=== PATIENT | male | born 1950 | race Caucasian/White ===

== ENCOUNTER 2017-08-10 05:58 | Inpatient (IN) | payer BC ==
[2017-08-10] MEDS ORDERED: ACETAMINOPHEN 1,000 MG/100 ML BTL IV ONE (06:00)
[2017-08-10] MEDS ORDERED: VANCOMYCIN HCL 1,000 MG in DEXTROSE 5 % IN WATER 250 ML IVPB ONE ×2 (06:00)
[2017-08-10] MEDS ORDERED: MECLIZINE 25 MG TABLET PO ONE (06:00)
[2017-08-10] MEDS ORDERED: METOCLOPRAMIDE 10 MG TABLET PO ONE (06:00)
[2017-08-10] MEDS ORDERED: FAMOTIDINE 20MG TABLET PO ONE (06:00)
[2017-08-10] MEDS ORDERED: CELECOXIB 100 MG CAPSULE PO ONE (06:00)
[2017-08-10 06:58] LABS: ABO GROUP B; ANTIBODY SCREEN NEGATIVE (NEGATIVE); RH TYPE POSITIVE
[2017-08-10] MEDS ORDERED: HYDROMORPHONE HCL 2 MG/ML VIAL IM PRN (07:59)
[2017-08-10] MEDS ORDERED: MORPHINE SULFATE 5 MG/ML PFS IVP PRN ×4 (07:59)
[2017-08-10] MEDS ORDERED: BISACODYL 10 MG SUPP RC PRN (07:59)
[2017-08-10] MEDS ORDERED: ACETAMINOPHEN W/ CODEINE 300MG/60MG TABLET PO PRN ×2 (07:59)
[2017-08-10] MEDS ORDERED: ACETAMINOPHEN 325 MG TAB PO PRN (07:59)
[2017-08-10] MEDS ORDERED: PROMETHAZINE HCL 12.5 MG in 0.9 % SODIUM CHLORIDE 100ML 50 ML IVPB PRN (07:59)
[2017-08-10] MEDS ORDERED: DIPHENHYDRAMINE HCL 25 MG CAPSULE PO PRN (07:59)
[2017-08-10] MEDS ORDERED: HYDROMORPHONE HCL 1 MG/ML SYRINGE IM PRN (07:59)
[2017-08-10] MEDS ORDERED: KETOROLAC 30 MG/ML VIAL IVP PRN ×2 (07:59)
[2017-08-10] MEDS ORDERED: ACETAMINOPHEN W/ CODEINE 300MG/30MG TABLET PO PRN ×2 (07:59)
[2017-08-10] MEDS ORDERED: ONDANSETRON HCL IV 4 MG/2 ML VIAL IVP PRN (07:59)
[2017-08-10] MEDS ORDERED: AL HYDROX/MAG HYDROX 30ML UD PO PRN (07:59)
[2017-08-10] MEDS ORDERED: ZOLPIDEM TARTRATE 5 MG TABLET PO PRN (07:59)
[2017-08-10] MEDS ORDERED: HYDROCODONE/APAP 7.5/325MG TABLET PO PRN ×2 (07:59)
[2017-08-10] MEDS ORDERED: HYDROCODONE/APAP 5/325MG TABLET PO PRN ×2 (07:59)
[2017-08-10] MEDS ORDERED: NALOXONE 0.4 MG/1 ML VIAL IVP PRN (07:59)
[2017-08-10] MEDS ORDERED: METOCLOPRAMIDE HCL 10 MG/2 ML VIAL IVP PRN (07:59)
[2017-08-10] MEDS ORDERED: MAGNESIUM HYDROXIDE 30 ML UDC PO PRN (07:59)
[2017-08-10] MEDS ORDERED: TRAMADOL HCL 50 MG TABLET PO PRN ×2 (07:59)
[2017-08-10] MEDS ORDERED: DEXTROSE 5 % AND 0.9 % NACL 1,000 ML IV PRN (09:45)
[2017-08-10] MEDS ORDERED: VANCOMYCIN HCL 1 GM VIAL IVPB ONE ×2 (12:16→12:17)
[2017-08-10] MEDS ORDERED: TRANEXAMIC ACID 1,000 MG/10 ML ML IV ONE ×2 (12:16→12:17)
[2017-08-10] MEDS ORDERED: BUPIVACAINE 0.5% W/EPI MPF 30 ML VIAL IVP ONE (12:17)
[2017-08-10] MEDS ORDERED: BUPIVACAINE LIPOSOME 266MG/20ML VIAL IV ONE (12:17)
[2017-08-10] MEDS: FERROUS SULFATE 325 MG TAB PO SCH ×2 (13:36→22:13)
[2017-08-10] MEDS: DOCUSATE SODIUM 100 MG CAPSULE PO SCH ×2 (13:36→22:13)
--- NOTE | 2017-08-10 13:39 | Rehab Evaluation ---
Patient Information - Patient Information Diagnosis: L Knee OA Ordered Treatment: PT Evaluate and Treat Status: Initial Evaluation Surgery: Yes (L TKA) Date of Surgery: 08/10/17 Past Medical/Surgical Hx: PAST MEDICAL/SURGICAL HISTORY Past Surgical History RTKA 8 years ago RTHA x's 2 1998 and 2011 colon resection c scopes left shoulder sx has plate dorinda filter and removal prostate sx PMH - Respiratory Hx Respiratory Disorders No PMH - Cardiovascular Hx Cardiovascular Disorders Yes Hx Deep Vein Thrombosis Yes: after hip sx 1998 was on thinners Exercise Tolerance Good Comment: pt had cardiac arrest when pic line was inserted in ICU 2 days PMH - Neuro Hx Neurological Disorders No PMH - GI Hx Gastrointestinal Disorders Yes Hx Gastroesophageal Reflux Yes: occassionally PMH - Hx Genitourinary Disorders Yes Hx Prostate Problems Yes: had sx no malignancy Comment: infection after prostate sx was on IV ABS's x's 1 month PMH - Endocrine Hx Endocrine Disorders No PMH - Musculoskeletal Hx Musculoskeletal Disorders Yes Hx Arthritis Yes: knee PMH - Psych Hx Psychiatric Problems No PMH - Hematology/Oncology Hx Hematology/Oncology Yes Disorders Hx Bruising Yes: thin skin Social History: Detail (The patient lives in a single story home with his spouse. The home has 2 steps to enter with railings on both sides. The patient' s home has a walk-in shower with a shower seat and grab bars in the shower. The toilet does not have grab bars present. He states that he will be using a standard walker in the early stages of recovery, and does not plan to use an AD for ambulation.) Precautions: [place] - Time With Patient Total Time Spent With Patient (Min): 30 Treatment Procedures: Detail (PT Initial Evaluation) Subjective Information - Subjective Information Per Patient (Said that he was not having any pain at this time. Said that he had some feelings of nausea.) Objective Data - Pain Pain Present: No Pain Intensity: 0 Pain Scale Used: Numeric (1 - 10) - Mental Status Patient Orientation: Oriented x3 - Visual Perception Appears within normal limits for therapeutic activities - ROM Within normal limits (R Knee - WNL L Knee - Decreased as expected s/p L TKA) - Strength/Tone Within normal limits (R LE - not formally tested but was within functional limits for ambulation and transfers L LE - Decreased as expected s/p L TKA) - Bed Mobility Independent (Supine to Sit to EOB - Independent Scooting in Bed - Independent) - Transfers Independent (Sit to Stand - Independent Stand to Sit - Independent) - Balance Balance Sitting: Good (Sitting at EOB - No LOB) Balance Standing: Good (Static Standing before ambulation - No LOB) - Sensation Intact - Gait Detail (The patient used a 2WW and WBAT on L and required CGA x1 for ambulation. He was able to walk from the edge of his bed to the chapel (about 88ft) and back (88 ft). Had no LOB throughout and no increase in pain.) - Special Tests No Therapy Assessment - Therapy Assessment Detail (The patient had no complaints of pain. He was independent with transfers and bed mobility. He was able to ambulate for about 180 feet with CGA x1, but stairs were not assessed at this time.) Patient Education - Patient Education Teaching Topic: Exercise/Activity (HEP was reviewed. Exercises included: Quad sets, Glut. sets, Hamstring sets, SLR, and ankle pumps. Was instructed 10 reps at least 1-2x per day.) Response: Return Demonstration, Verbalize Understanding Teaching Method: Discussion, Demonstration Teaching Recipient: Patient Barriers To Learning: None Problem List - Problem List Physical Therapy Problem List: Detail (1) Decreased strength and ROM as expected L TKA 2) Ability to ascend/descend stairs not assessed) Goals - Goals Physical Therapy Goals: 1) The patient will be able to ascend/descend three stairs with supervision so he will be able to enter his home safely. 2) The patient will be independent in HEP to regain strength and ROM in L Knee Prognosis - Prognosis Good Plan - Plan Physical Therapy Plan: The patient will be seen 1-2x/day M-F for gait training and LE strengthening.
[2017-08-10] MEDS ORDERED: FENTANYL PF 100MCG/2ML VIAL IV ONE (15:07)
[2017-08-10] MEDS ORDERED: MIDAZOLAM HCL 2MG/2ML VIAL IV ONE (15:07)
[2017-08-10] MEDS ORDERED: *PACU ONLY* KETAMINE HCL 10 MG/ML (20ML) VIAL IV ONE (15:07)
[2017-08-10] MEDS ORDERED: EPHEDRINE SULFATE 50 MG/ML ML IV ONE (15:07)
[2017-08-10] MEDS ORDERED: PROPOFOL 10 MG/ML VIAL IV ONE (15:07)
[2017-08-10] MEDS ORDERED: HYDROMORPHONE HCL 2 MG/ML VIAL IV ONE (15:07)
[2017-08-10] MEDS: VANCOMYCIN HCL 1,000 MG in DEXTROSE 5 % IN WATER 250 ML IVPB SCH ×2 (18:35)
--- NOTE | 2017-08-10 21:22 | Operative Note ---
DATE OF SURGERY: 08/10/2017 PREOPERATIVE DIAGNOSIS: Left knee arthrosis POSTOPERATIVE DIAGNOSIS: Left knee arthrosis. PROCEDURE: Left total knee arthroplasty. SURGEON: Reagan Hogue M.D. Anesthesia: Spinal. Eva Arreola CRNA. Complications: None. Blood Loss: Minimal. Tourniquet Time: Approximately 60 minutes. Operative Findings: Severe [id number] erosive patellofemoral arthrosis. Components Placed: 2 gram Vancomycin, cement, [employer] II Oxinium total knee arthroplasty system; size 6 femoral component, size 6 tibial baseplate, an 10 mm thick tibial poly insert, and a 35 mm cemented patellar component. INDICATIONS FOR OPERATION: This is a 63-year-old male who has had persistent pain and dysfunction in her knees for several years. He is status post right total knee arthroplasty done by myself a few years ago and is now scheduled for the left. I explained all the risks and benefits to him in detail for diagnosis and procedures including but not limited to, infection, nerve injury, vessel injury, persistent pain, stiffness, numbness and tingling in his ankle, need for resection of arthroplasty should the components become infected or loosened , nerve injury, vessel injury, blood clot, need for further procedures, and need for anticoagulation to prevent blood clots, and the risks associated with medications and all of his questions were answered. The rehab and healing course were outlined and he agreed to the procedure. PROCEDURE: The patient was brought to the O.R. and placed in the supine position for surgery. Spinal anesthesia induced and his left lower extremity prepped and draped in sterile fashion. Left knee was prepped again with ChloraPrep after it was draped. Intraoperative time-out was performed. The leg was exsanguinated with an Esmarch. The knee was flexed and the tourniquet inflated to 250 mmHg pressure. Next, the skin and subcutaneous tissue was dissected down. I Incised the capsule medially around the medial border of the of the patella to the tibial tubercle. I incised the vastus medialis in line with its fibers in a mid vastus approach. I partially resected the retropatellar fat pad, elevated the capsule subperiosteally and medially and flexed the knee. He had severe erosive bone-on- bone patellofemoral compartment arthritis. Next, we drilled an intercondylar drill hole and inserted the intramedullary guide winnie with 6 degree cutting block , aligned the distal femoral condyles, and then pinned it in a +2 mm position, and cut the distal femoral condyles. Next, I placed the sizing jig on the distal femoral condyle and sized it to be right on size 6. Through the previously placed pinholes, we placed the 5-in-1 cutting jig, size 6. We dialed in the anterior cut so it would come out flush without notching. We cut that cut and then pinned it in place and cut the remaining chamfer cuts in the usual fashion. We then placed a size 6 trial femoral component. It fit nicely. I had a good flush cut. Next, attention was turned to the tibia. We exposed the tibia with a Romario and bent Hohmann's. I resected the ACL previously and resected some of the meniscus. I inserted the spikes in the intertubercular groove two fingerbreadths distally to the anterior tibial cortex off the third of the tibial tubercle and we referenced for a 7 mm cut off the higher lateral plateau with a stylus. We then pinned the cutting jib provisionally in place with two anterior posterior pins. Next, I then rechecked alignment of the cutting jig with the drop winnie centered on the tibial anatomic axis and cross-pinned it to complete its fixation and then cut the tibia. Next, we removed osteophytes from the posterior femoral condyles, checked flexion and extension gaps. Basically, we sized up to a size 10 mm block. He symmetric flexion and extension gaps at 0 with 2 to 3 mm of varus valgus laxity in flexion and extension. Overall alignment of cuts in extension with alignment rods was in anatomic valgus orientation with alignment winnie centered on the hip joint and ankle joint. Next we took the knee in flexion. We sized the tibial baseplate to a size 6. We replaced all trial components. I set the rotation again of the tibial baseplate in extension using the alignment winnie centered on the hip joint and ankle joint. Marked with electrocautery hatfield off the laser hatfield on the tibial baseplate. Attention was turned to the patella. We measured the patella to be approximately 23 mm. We set the cutting jig at 14 mm to allow for a 9 mm thick poly insert. We cut the patella, chamfered off the lateral patellar facet. Sized to be a 35, medialized as much as possible and had good fit and remeasured and it was right on 14 mm thick and we drilled three peg holes for a 35 mm cemented patellar component. Next, we did a trial range of motion. The patella tracked nicely handsfree. He had full extension and flexion to 140 to 150 degrees and again symmetric flexion and extension gaps were found. Next, we mixed cement and changed gloves, brought in a clean sheet. We copiously irrigated the bony surface with pulse lavage and antibiotic solution. We then set the tibial baseplate at the previously placed electrocautery hatfield, pinned it in place, and reamed out and keel punched the keel hole. Next, we placed a bone plug in the femoral canal hole. We placed the drill bit in the tibial keel hole and then pre-coated both surfaces and impacted down the tibial component and then the femoral component and placed the trial tibial poly liner and clamped down the patella component held the knee in extension until the cement hardened. Once the cement hardened, we took the knee in flexion. We distracted the knee with a bone hook and sponge. We removed excess cement around the edges of the components and recessed it. We irrigated the knee copiously and then we injected several areas with poke sticks of 0.5% Marcaine with Epinephrine, 2 grams tranexamic acid and an Exparel mixture deep in the posterior capsule, medial and lateral periosteum, and superficially in the subcutaneous tissue, vastus medialis. Next, we then inserted the real tibial poly insert and verified it was interlocked medially and laterally. Final range of motion revealed the same. Next, we irrigated copiously, placed the knee in flexion, and closed the capsule and vastus with running #2 Quill. We irrigated again and closed the skin deep with 2-0 Vicryl and Zipline. Sterile dressing applied. MISBAH wrap. He tolerated the procedure well. No intraoperative complications. All sponge, needle, and blade counts correct. Recovery stable, neurovascularly intact. He will be discharged back to the Floor and will likely be discharged and follow- up in two weeks. CC: Dr. Shruti Leal JOB NUMBER: [id number] MTDD
[2017-08-11] MEDS: VANCOMYCIN HCL 1,000 MG in DEXTROSE 5 % IN WATER 250 ML IVPB SCH ×2 (05:48)
[2017-08-11 06:50] LABS: HEMATOCRIT 37.2 % (42.0-52.0); HEMOGLOBIN 12.2 gm/dl (14.0-18.0)
[2017-08-11] MEDS: DOCUSATE SODIUM 100 MG CAPSULE PO SCH (09:15)
[2017-08-11] MEDS: FERROUS SULFATE 325 MG TAB PO SCH (09:15)
[2017-08-11] MEDS ORDERED: CELECOXIB 100 MG CAPSULE PO SCH (10:00)
[2017-08-11] MEDS ORDERED: RIVAROXABAN 10 MG TABLET PO SCH (10:00)
--- NOTE | 2017-08-11 10:50 | Physical Therapy Tx Note ---
Physical Therapy Tx Note - Treatment Note Tolerated: Good Total Time Spent With Patient: 25 Physical Therapy Tx Note: Detail (The patient was in bed when PT arrived. The patient had minimal complaints of L knee pain, level 2 at the highest. The patient reports the pain behind has lessened since RN stretched his calf while completing a test for a blood clot. The patient was independent with supine to and from sit transfer and sit to and from stand. The patient ambulated independently with wheeled walker a distance of 500 feet x 1 WBAT on the L LE. The patient was independent with toilet transfer. The patient ambulated on three stairs with use of one railing and walker, WBAT on the L LE with supervision for safety only. The patient returned to room and was left with family member , sitting on the edge of the bed. The patient has met all inpatient PT goals.) Physical Therapy Problem List: Detail (1) Decreased strength and ROM as expected L TKA 2) Ability to ascend/descend stairs not assessed) Physical Therapy Goals: 1) The patient will be able to ascend/descend three stairs with supervision so he will be able to enter his home safely (MET). 2) The patient will be independent in HEP to regain strength and ROM in L Knee (MET ) Physical Therapy Plan: The patient has met all inpatient PT goals and is discharged from inpatient PT. The patient is to continue with outpatient PT.
--- NOTE | 2017-08-11 11:22 | Rehab Evaluation ---
Patient Information - Patient Information Diagnosis: L Knee OA Ordered Treatment: OT Evaluate and Treat Status: Initial Evaluation Surgery: Yes (L TKA) Date of Surgery: 08/10/17 Past Medical/Surgical Hx: PAST MEDICAL/SURGICAL HISTORY Past Surgical History RTKA 8 years ago RTHA x's 2 1998 and 2011 colon resection c scopes left shoulder sx has plate dorinda filter and removal prostate sx PMH - Respiratory Hx Respiratory Disorders No PMH - Cardiovascular Hx Cardiovascular Disorders Yes Hx Deep Vein Thrombosis Yes: after hip sx 1998 was on thinners Exercise Tolerance Good Comment: pt had cardiac arrest when pic line was inserted in ICU 2 days PMH - Neuro Hx Neurological Disorders No PMH - GI Hx Gastrointestinal Disorders Yes Hx Gastroesophageal Reflux Yes: occassionally PMH - Hx Genitourinary Disorders Yes Hx Prostate Problems Yes: had sx no malignancy Comment: infection after prostate sx was on IV ABS's x's 1 month PMH - Endocrine Hx Endocrine Disorders No PMH - Musculoskeletal Hx Musculoskeletal Disorders Yes Hx Arthritis Yes: knee PMH - Psych Hx Psychiatric Problems No PMH - Hematology/Oncology Hx Hematology/Oncology Yes Disorders Hx Bruising Yes: thin skin Premorbid Status: Detail (Ind. with all I/ADL's) Social History: Detail (The patient lives in a single story home with his spouse. The home has 2 steps to enter with railings on both sides. The patient' s home has a walk-in shower with a shower seat, grab bars, and hand held shower head. The toilet does not have grab bars present. He states that he will be using a standard walker in the early stages of recovery, and does not plan to use an AD for ambulation.) Precautions: [place] - Time With Patient Total Time Spent With Patient (Min): 10 Objective Data - Pain Pain Present: Yes (L knee) - Mental Status Patient Orientation: Oriented x3 - Visual Perception Appears within normal limits for therapeutic activities - ROM Within normal limits (BUE WNL except L shd ext d/t hx of football injury (pt has metal plate), but does not cause issues with function.) - Strength/Tone Within normal limits (BUE WNL) - Coordination Appears within normal limits for therapeutic activities - Bed Mobility Independent - Transfers Independent - Balance Balance Sitting: Good - Sensation Intact (lt touch BUE) - ADL's/IADL's Detail (Pt. declined with max attempts to get out of bed, stating d/t L knee pain and just walked with PT. Pt. stated he is familiar with AE and adaptive techniques from previous surgeries. Pt. dressed himself Ind. except for shoes prior to OT eval, per pt. report. Reviewed adaptive dressing techniques and AE. Educ. provided in using nut sorter or shoe horn to assist with donning shoes. Pt. stated he has a nut sorter, sock aid, and shoe horn at home but just needs to find them.) Therapy Assessment - Therapy Assessment Detail (Pt. voiced understanding of AE and adaptive techniques and has a positive support system. In-pt. OT services not recommended at this time.) Patient Education - Patient Education Teaching Topic: Equipment Use Response: Verbalize Understanding Teaching Method: Discussion, Demonstration Teaching Recipient: Patient Barriers To Learning: None Problem List - Problem List Physical Therapy Problem List: Detail (1) Decreased strength and ROM as expected L TKA 2) Ability to ascend/descend stairs not assessed) Goals - Goals Physical Therapy Goals: 1) The patient will be able to ascend/descend three stairs with supervision so he will be able to enter his home safely (MET). 2) The patient will be independent in HEP to regain strength and ROM in L Knee (MET ) Prognosis - Prognosis Good Plan - Plan Physical Therapy Plan: The patient has met all inpatient PT goals and is discharged from inpatient PT. The patient is to continue with outpatient PT. Occupational Therapy Plan: D/C from OT services. Educ. was provided to call rehab dept. if Q's/concerns arise upon arriving home.
== END 2017-08-11 16:00 | disposition home health service (06) | DRG 470 ==
LOC: MEDSURG 05:58
PROVIDERS: ADMIT Orthopaedic Surgery; ATTEND Orthopaedic Surgery
PROC: 0SRD069 Replacement of Left Knee Joint with Oxidized Zirconium on Polyethylene Synthetic Substitute, Cemented, Open Approach (ICD-10-PCS; principal; 2017-08-10 07:30)
DX: M17.12 Unilateral primary osteoarthritis, left knee (principal)
CPT/HCPCS: 85014; 85018; 86850; 86900; 86901; 97110; 97116; 97165; J1885; J2405; J2765; J7042; J7060

== ENCOUNTER 2019-07-04 08:05 | Inpatient (IN) | payer BC, MEDICARE ==
[~2019-07-04 08:05] MED LIST: ACETAMINOPHEN 500 MG TABLET PO ONE; CEFAZOLIN 2 Gram 2 GM/50 ML BAG IVPB ONE; CELECOXIB 100 MG CAPSULE PO ONE; FAMOTIDINE 20MG TABLET PO ONE; METOCLOPRAMIDE 10 MG TABLET PO ONE; SCOPOLAMINE 1 PATCH TDSY TD ONE; VANCOMYCIN 1GM/200ML PREMIX 1 GM/200 ML PIGGYBACK IVPB ONE
[2019-07-04] MEDS ORDERED: TRAMADOL HCL 50 MG TABLET PO PRN ×2 (08:25)
[2019-07-04] MEDS ORDERED: MAGNESIUM HYDROXIDE 30 ML UDC PO PRN (08:25)
[2019-07-04] MEDS ORDERED: HYDROCODONE/APAP 5/325MG TABLET PO PRN ×2 (08:25)
[2019-07-04] MEDS ORDERED: HYDROMORPHONE HCL 2 MG/ML VIAL IM PRN ×2 (08:25)
[2019-07-04] MEDS ORDERED: AL HYDROX/MAG HYDROX 30ML UD PO PRN (08:25)
[2019-07-04] MEDS ORDERED: NALOXONE 0.4 MG/1 ML VIAL IVP PRN (08:25)
[2019-07-04] MEDS ORDERED: ONDANSETRON HCL IV 4 MG/2 ML VIAL IVP PRN (08:25)
[2019-07-04] MEDS ORDERED: ZOLPIDEM TARTRATE 5 MG TABLET PO PRN (08:25)
[2019-07-04] MEDS ORDERED: PROMETHAZINE HCL 12.5 MG in 0.9 % SODIUM CHLORIDE 100ML 50 ML IVPB PRN (08:25)
[2019-07-04] MEDS ORDERED: DIPHENHYDRAMINE HCL 25 MG CAPSULE PO PRN (08:25)
[2019-07-04] MEDS ORDERED: ACETAMINOPHEN W/ CODEINE 300MG/60MG TABLET PO PRN (08:25)
[2019-07-04] MEDS ORDERED: METOCLOPRAMIDE HCL 10 MG/2 ML VIAL IVP PRN (08:25)
[2019-07-04] MEDS ORDERED: BISACODYL 10 MG SUPP RC PRN (08:25)
[2019-07-04] MEDS ORDERED: ACETAMINOPHEN 325 MG TAB PO PRN (08:25)
[2019-07-04] MEDS ORDERED: HYDROCODONE/APAP 7.5/325MG TABLET PO PRN (08:25)
[2019-07-04] MEDS ORDERED: KETOROLAC 30 MG/ML VIAL IVP PRN (08:25)
[2019-07-04] MEDS ORDERED: ACETAMINOPHEN W/ CODEINE 300MG/30MG TABLET PO PRN ×2 (08:25)
[2019-07-04] MEDS ORDERED: RINGERS SOLUTION,LACTATED 1,000 ML IV ONE ×3 (10:15→14:37)
[2019-07-04 10:38] LABS: ABO GROUP B; ANTIBODY SCREEN NEGATIVE (NEGATIVE); RH TYPE POSITIVE
[2019-07-04] MEDS ORDERED: DEXAMETHASONE 4 MG/ML 1ML VIAL IVP ONE (13:50)
[2019-07-04] MEDS ORDERED: 0.9 % SODIUM CHLORIDE 10 ML VIAL IVP ONE (13:51)
[2019-07-04] MEDS ORDERED: TRANEXAMIC ACID 1,000 MG/10 ML ML IVPB ONE (14:10)
[2019-07-04] MEDS ORDERED: BUPIVACAINE 0.5% W/EPI MPF 30 ML VIAL IU ONE (14:18)
[2019-07-04] MEDS ORDERED: BUPIVACAINE LIPOSOME 266MG/20ML VIAL IU ONE (14:18)
[2019-07-04] MEDS ORDERED: VANCOMYCIN HCL 1 GM VIAL IU ONE (14:19)
[2019-07-04] MEDS ORDERED: VANCOMYCIN HCL 1 GM VIAL IR ONE (14:19)
[2019-07-04] MEDS ORDERED: DEXTROSE 5 % AND 0.9 % NACL 1,000 ML IV PRN (14:30)
[2019-07-04] MEDS ORDERED: ROPIVACAINE HCL (NAROPIN) /PF 5MG/ML 20ML VIAL IV ONE (14:54)
[2019-07-04] MEDS ORDERED: HYDROMORPHONE HCL 2 MG/ML VIAL IV PRN (14:58)
[2019-07-04] MEDS ORDERED: HYDROMORPHONE HCL 2 MG/ML VIAL IVP PRN (14:58)
--- NOTE | 2019-07-04 15:56 | RADIOLOGY REPORT ---
EXAMINATION: Left Hip Single View EXAM DATE: 07/04/2019 3:32 PM TECHNIQUE: AP INDICATION: S/P L DIYA COMPARISON: None available ENCOUNTER: Initial FINDINGS: Total left hip arthroplasty is in anatomic alignment. There is a vertical lucency in the medial proxi mal femur. Gas in the soft tissues from recent surgery. IMPRESSION: Total left hip arthroplasty. Possible fracture of the medial femur. Recommend correlation with prior films if available, otherwise CT scan. Dictated by: Kiarra Marroquin MD on 07/04/2019 3:53 PM. .
--- NOTE | 2019-07-04 17:17 | Rehab Evaluation ---
Patient Information - Patient Information Diagnosis: L hip DJD Ordered Treatment: PT Evaluate and Treat Status: Initial Evaluation Surgery: Yes (L THR) Date of Surgery: 07/04/19 Past Medical/Surgical Hx: PAST MEDICAL/SURGICAL HISTORY Past Surgical History RTKA LTKA 08-10-17 PMH - Respiratory Hx Respiratory Disorders No Comment: SINUS CONGESTION PMH - Cardiovascular Hx Cardiovascular Disorders Yes Hx Deep Vein Thrombosis Yes: after hip sx 1998 was on thinners Exercise Tolerance Fair Comment: pt had cardiac arrest when pic line was inserted in ICU 2 days PMH - Neuro Hx Neurological Disorders No PMH - GI Hx Gastrointestinal Disorders Yes Hx Gastroesophageal Reflux Yes: occassionally PMH - Hx Genitourinary Disorders Yes Hx Prostate Problems Yes: had sx no malignancy Comment: infection after prostate sx was on IV ABS's x's 1 month PMH - Endocrine Hx Endocrine Disorders No PMH - Musculoskeletal Hx Musculoskeletal Disorders Yes Hx Arthritis Yes: knee PMH - Psych Hx Psychiatric Problems No PMH - Hematology/Oncology Hx Hematology/Oncology Yes Disorders Hx Bruising Yes: thin skin Premorbid Status: Detail (The patient was independent with all mobility prior to surgery.) Social History: Detail (The patient lives with spouse in a one story house with 3 steps at the enterance and two hand rails. The patient also has 2 small steps in the house to get to the kitchen. The bathroom is equipped with: a walk in shower, shower bench, hand held shower, standard height toilet with a riser seat. The patient has a standard walker and cane.) Precautions: [place], [place], Other (THR precautions, WBAT on the L LE.) - Time With Patient Total Time Spent With Patient (Min): 30 Treatment Procedures: Detail (Initial Evaluation low complexity.) Subjective Information - Subjective Information Per Patient (The patient had no complaints of pain just "irritation feeling" in L hip.) Objective Data - Pain Pain Present: No - Mental Status Patient Orientation: Oriented x3 - Visual Perception Appears within normal limits for therapeutic activities - ROM Not within normal limits (The patient's L hip was within THR precautions. All other LE AROM was WNL.) - Strength/Tone Not within normal limits (The patient's LE strength was not tested s/p surgery, however was functional.) - Bed Mobility Independent (The patient was independent with supine to and from sit transfer and scooting up in bed.) - Transfers Independent (The patient was independent with sit to and from stand transfer.) - Balance Balance Sitting: Good Balance Standing: Good - Sensation Intact - Gait Detail (The patient ambulated with standard walker WBAT on the L LE a distance of 120 feet x 1 with assist of one for IV .) Therapy Assessment - Therapy Assessment Detail (The patient was independent with bed mobility, transfers and ambulation. The patient will be seen for one to two visits for gait training on stairs and instruction in HEP.) Problem List - Problem List Physical Therapy Problem List: Detail (Decreased L LE strength s/p surgery.) Goals - Goals Physical Therapy Goals: 1) The patient will be independent with THR HEP. 2) The patient will ambulate on stairs with supervision for safety using proper technique. Prognosis - Prognosis Good Plan - Plan Physical Therapy Plan: PT 1-2 sessions for gait training on stairs and instruction in THR HEP.
[2019-07-04] MEDS: DOCUSATE SODIUM 100 MG CAPSULE PO SCH (22:31)
[2019-07-04] MEDS: FERROUS SULFATE 325 MG TAB PO SCH (22:31)
[2019-07-04] MEDS: VANCOMYCIN 1GM/200ML PREMIX 1 GM/200 ML PIGGYBACK IVPB SCH (22:32)
[2019-07-05 07:10] LABS: HEMATOCRIT 36.2 % (42.0-52.0); HEMOGLOBIN 11.4 gm/dl (14.0-18.0)
--- NOTE | 2019-07-05 08:28 | Rehab Evaluation ---
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 was on thinners Exercise Tolerance Fair Comment: pt had cardiac arrest when pic line was inserted in ICU 2 days PMH - Neuro Hx Neurological Disorders No PMH - GI Hx Gastrointestinal Disorders Yes Hx Gastroesophageal Reflux Yes: occassionally PMH - Hx Genitourinary Disorders Yes Hx Prostate Problems Yes: had sx no malignancy Comment: infection after prostate sx was on IV ABS's x's 1 month PMH - Endocrine Hx Endocrine Disorders No PMH - Musculoskeletal Hx Musculoskeletal Disorders Yes Hx Arthritis Yes: knee PMH - Psych Hx Psychiatric Problems No PMH - Hematology/Oncology Hx Hematology/Oncology Yes Disorders Hx Bruising Yes: thin skin Premorbid Status: Detail (The patient was independent with all mobility, meal prep, laundry and home mgmt tasks prior to surgery.) Social History: Detail (The patient lives with spouse and daughter in a one story house with 3 steps at the entrance and two hand rails. The patient also has 2 small steps in the house to get to the kitchen. The bathroom is equipped with: a walk in shower, shower bench, hand held shower and elevated toilet. The patient has a standard walker and cane as well as a undercoat sprayer, sock aid and long shoe horn.) Precautions: Rice, Fall, Other (THR precautions, WBAT on the L LE.) - Time With Patient Total Time Spent With Patient (Min): 40 Treatment Procedures: Detail (OT eval low complexity) Subjective Information - Subjective Information Per Patient Objective Data - Pain Pain Present: Yes (08/08) - Mental Status Patient Orientation: Oriented x3 - Visual Perception Appears within normal limits for therapeutic activities - ROM Within normal limits (Jovani UE AROM WNL) - Strength/Tone Within normal limits (Jovani UE strength WNL) - Coordination Appears within normal limits for therapeutic activities - Bed Mobility Independent (Ind with supine to sit with trapeze and bed rails. Pt reports he sleeps in a recliner at home.) - Transfers Independent (Ind with sit to stand from EOB) - Balance Balance Sitting: Good Balance Standing: Good - Sensation Intact - Gait Detail (Pt ambulating in room and hallway with standard walker and supervision.) - ADL's/IADL's Detail (Pt educated on modified LE dressing techniques using undercoat sprayer, sock aid and long shoe horn while maintaining total hip precautions. Pt was able to d emonstrate doffing slipper socks and donning shorts, socks and tennis shoes with min assist. Pt reports his daughter will be able to assist him. Reviewed kitchen and shower safety and modifications, pt verbalized understanding.) Therapy Assessment - Therapy Assessment Detail (Pt requires min assist for modified LE dressing techniques but is co nfident with techniques and his daughter is able to assist after discharge.) Problem List - Problem List Physical Therapy Problem List: Detail (Decreased L LE strength s/p surgery.) Occupational Therapy Problem List: Detail (No current IP OT problems identified.) Goals - Goals Physical Therapy Goals: 1) The patient will be independent with THR HEP. 2) The patient will ambulate on stairs with supervision for safety using proper technique. Occupational Therapy Goals: No current IP OT goals identified. Prognosis - Prognosis Good Plan - Plan Physical Therapy Plan: PT 1-2 sessions for gait training on stairs and instruction in THR HEP. Occupational Therapy Plan: No further IP OT recommended. Pt discharged from OT at this time. Thank you for this referral.
[2019-07-05] MEDS ORDERED: MIDAZOLAM HCL 2MG/2ML VIAL IV ONE (09:05)
[2019-07-05] MEDS ORDERED: PROPOFOL 10 MG/ML VIAL IV ONE (09:05)
[2019-07-05] MEDS ORDERED: LIDOCAINE 2% MDV (20MG/ML) 20ML VIAL IV ONE (09:05)
[2019-07-05] MEDS ORDERED: CELECOXIB 100 MG CAPSULE PO SCH (10:00)
[2019-07-05] MEDS ORDERED: RIVAROXABAN 10 MG TABLET PO SCH (10:00)
[2019-07-05] MEDS: FERROUS SULFATE 325 MG TAB PO SCH (10:29)
[2019-07-05] MEDS: VANCOMYCIN 1GM/200ML PREMIX 1 GM/200 ML PIGGYBACK IVPB SCH (10:29)
[2019-07-05] MEDS: DOCUSATE SODIUM 100 MG CAPSULE PO SCH (10:31)
--- NOTE | 2019-07-05 10:34 | Physical Therapy Tx Note ---
Physical Therapy Tx Note - Treatment Note Tolerated: Good Total Time Spent With Patient: 25 Physical Therapy Tx Note: Detail (The patient was up in bed when PT arrived. The patient ambulated 130 feet x 1 with standard walker WBAT on the R LE independently. The patient ambulated on 3 steps with using one railing and cane using proper technique with supervision for safety only. The patient was independent with supine to and from sit transfer with use of trapeze. (The p atient is sleeping in a recliner at home.) The patient completed THR HEP including: standing hip abduction, assisted supine abduction, heel slides, ankle pumps, gluteal sets, quad sets and hamstring sets. The patient demonstrated good understanding of total hip precautions. The patient has met all inpt. goals and is discharged from inpt. PT.) Physical Therapy Problem List: Detail (Decreased L LE strength s/p surgery.) Physical Therapy Goals: 1) The patient will be independent with THR HEP. (Goal Met). 2) The patient will ambulate on stairs with supervision for safety using proper technique.(Goal Met) Physical Therapy Plan: The patient is discharged from inpt. PT and is to continue with Home PT.
--- NOTE | 2019-07-07 08:30 | Operative Note ---
DATE OF SURGERY: 07/04/2019 PREOPERATIVE DIAGNOSIS: Left hip end-stage arthrosis. POSTOPERATIVE DIAGNOSIS: Left hip end-stage arthrosis. OPERATION: Left total hip arthroplasty. SURGEON: Reagan Hogue MD ANESTHESIA: Spinal. ANESTHESIA PROVIDER: NENITA Steve COMPLICATIONS: None. ESTIMATED BLOOD LOSS: 200 mL OPERATIVE FINDINGS: [id number] hip arthrosis. COMPONENTS PLACED: [employer] Synergy cemented total hip arthroplasty system, size 14 high offset femoral stem cemented with a 36 mm plus 0 mm Oxinium femoral head component, a 58 mm acetabular shell with 1 acetabular screw, 2 screw caps, centrally-threaded screw caps, and a highly cross-linked polyethylene 20-degree lawrence liner. INDICATION: This is a 69-year-old male who is well known to me. He is status post knee replacement, status post revision right hip replacement done by another surgeon. He is now scheduled for left hip replacement. I explained all risks and benefits in detail for the diagnosis and procedure including but not limited to infection, nerve injury, vessel injury, persistent pain, stiffness, numbness, tingling in his hip, periprosthetic fracture, limb length discrepancy, need for resection arthroplasty should the components become infected or loosen, nerve injury, vessel injury, blood clot, need for further procedures, and need for anticoagulation to prevent blood clots and risks associated with these medications. All his questions were answered. The rehab and healing course were outlined. He agreed to proceed. PROCEDURE: The patient brought to the OR and placed in the right lateral decubitus position. The left hip and lower extremity prepped and draped in sterile fashion. Prepped again using Chloraprep and draped. Intraoperative timeout was performed. Next, using an incision marking template, marked a posterior incision over the gluteus and infiltrated that with our 0.5% Marcaine with epinephrine. Next, skin and subcutaneous tissue dissected down to gluteal fascia. Every layer of the approach, we utilized Aquamantys cauterization for hemostasis throughout. Next, brought in self-retainer, identified the sciatic nerve, carefully protected at all times. Took off the short external rotators, released the capsule inferiorly and anteriorly and dislocated the femoral head without difficulty. The femoral head was completely devoid of any articular cartilage. It was deformed. We resected about 1.5 cm off the lesser trochanter. Inserted a box osteotome and then started reaming by hand with an 8 mm reamer working in 1 mm increments up to size 14. We stopped there and broached to a 12 with calcar plane to appropriate level, then a 13 and a 14. Had a good fit proximal and distally and stopped there. Plan on cementing the stem in this 69-year-old male who has had history of multiple caries as well that were extracted recently. Attention turned to the acetabulum. Released the capsule anteriorly. Placed an inferior acetabular retractor, Cathy retractors, and exposed the acetabulum. Resected some of the superior and posterior capsule and labrum. Next, the bone was very sclerotic. We then started reaming in 1 mm increments and 20 degrees anteversion, 45 degrees inclination until we reamed up to a size 57 mm. We then trialed a 58 using a helicopter guide, again the same orientation and fit nicely centrally and peripherally, and that was the size that we used. We changed gloves, brought in clean sheets. Copiously irrigated the acetabulum. Impacted down the real 3-hole acetabular shell using our guide again in 45 degrees inclination and 20 degrees anteversion until it was flush medially. Next, we inserted a trial liner and did a trial reduction. Best combination range of motion, stability, and leg lengths was with a 36 mm femoral head component plus 0 with a 20-degree hooded liner. This allowed for flexion to 90 and rotation 80 before hip dislocated. Symmetric limb lengths and stability with extension and external rotation. Stability with flexion and internal rotation. This was the size that we used. Next, we removed all trial components. Irrigated the acetabulum copiously. We inserted the screw caps, 2 screw caps and the centrally-threaded screw cap. Impacted down the real highly crosslinked polyethylene liner with the lawrence in posterior superior quadrant. Next, then mixed cement, placed the cement restrictly distally in the femoral canal after irrigation and CarboJet to the bone surface anterior on the canal. Next, we injected the cement in the symmetrical technique. Removed with suction catheter and inserted the real femoral stem until the collar was flush with the medial calcar again in 15 degrees of anteversion. Then removed excess cement. Held until it until the cement hardened. Cleaned and dried the trunnion and impacted down the real femoral head component. Reduced the hip and found the range of motion to be the same. Irrigated copiously. Closed the gluteal fascia with a running #2 quill suture. Closed skin with several buried interrupted 2-0 Vicryl securely and DOLORES dressing applied. Abduction pillow. Postop x-ray revealed good fit and orientation of components. The patient tolerated the procedure well. No intraoperative complications. All sponge, needle, and blade counts correct. Sent to recovery in stable condition. Neurovascularly intact. He will be discharged to the floor and can be discharged home tomorrow. Follow up in 2 weeks. ELLIE
== END 2019-07-05 13:30 | disposition home health service (06) | DRG 470 ==
LOC: MEDSURG 09:37 → EDSTATUS 14:00
PROVIDERS: ADMIT Orthopaedic Surgery; ATTEND Orthopaedic Surgery
PROC: 0SRB069 Replacement of Left Hip Joint with Oxidized Zirconium on Polyethylene Synthetic Substitute, Cemented, Open Approach (ICD-10-PCS; principal; 2019-07-04 12:00)
DX: M16.12 Unilateral primary osteoarthritis, left hip (principal); Z86.718 Personal history of other venous thrombosis and embolism
CPT/HCPCS: 85014; 85018; 86850; 86900; 86901; J3370; J7042; J7120